=== PATIENT | female | born 1965 | race Caucasian/White ===

== ENCOUNTER → 2017-01-21 | Outpatient (CLI) | payer MEDICARE | END | disposition home or self-care (01) | LOC: GMAM 14:34 | PROVIDERS: ATTEND Family Medicine | DX: D64.9 Anemia, unspecified (principal); E03.9 Hypothyroidism, unspecified ==

== ENCOUNTER → 2017-01-22 | Outpatient (CLI) | payer MEDICARE | END | disposition home or self-care (01) | LOC: GMAM 12:28 | PROVIDERS: ATTEND Family Medicine | DX: R29.898 Other symptoms and signs involving the musculoskeletal system (principal) ==

== ENCOUNTER → 2017-02-05 | Outpatient (CLI) | payer MEDICARE ==
--- NOTE | 2017-02-06 13:20 | MAM ---
History: Well woman exam. Date of exam: 02/05/2017 Services provided: Bilateral full field digital screening mammography. CAD, the images were reviewed with R2 computer aided detection. FINDINGS: Glandular tissue is glandular tissue bilaterally is near completely fatty involuted. No prior study for comparison. Subpectoral implant is present on the left, mammographically benign. Benign-appearing calcifications are shown bilaterally with deformity of the left nipple appreciated. No dominant mass or architectural distortion. IMPRESSION: Benign exam. Recommendation: Routine annual mammography BIRAD CATEGORY: 2 BENIGN Electronically signed by: Jazmine Dominguez MD 02/06/2017 1:20 PM CDT
== END | disposition home or self-care (01) ==
LOC: MAMMO 10:27
PROVIDERS: ATTEND Family Medicine
DX: Z12.31 Encounter for screening mammogram for malignant neoplasm of breast (principal)

== ENCOUNTER → 2017-02-19 | Outpatient (CLI) | payer MEDICARE | END | disposition home or self-care (01) | LOC: GMAM 17:18 | PROVIDERS: ATTEND Family Medicine | DX: R10.9 Unspecified abdominal pain (principal) ==

== ENCOUNTER → 2017-02-20 | Outpatient (CLI) | payer MEDICARE ==
--- NOTE | 2017-02-20 14:11 | CT ---
Procedure: CT ABDOMEN PELVIS WITHOUT IV CONTRAST Exam Date: 02/20/2017 1:21 PM CDT Ordering Provider: CALE ZIMMERMAN Clinical Indication: ABD PAIN Comparison: None TECHNIQUE: CT of the abdomen and pelvis WITHOUT intravenous contrast. The abdomen and pelvis were scanned utilizing a multidetector helical scanner from the diaphragm to the lesser trochanter. Coronal and sagittal reformations were obtained. DISCUSSION: ABSENCE OF INTRAVENOUS CONTRAST DECREASES SENSITIVITY FOR DETECTION OF FOCAL LESIONS AND VASCULAR PATHOLOGY. LOWER THORAX: 2-3 mm calcified granuloma is seen in the left lower lobe. Partially imaged left breast implant. HEPATOBILIARY: No focal hepatic lesions. No biliary ductal dilatation. SPLEEN: No splenomegaly. PANCREAS: No focal masses or ductal dilatation. ADRENALS: No adrenal nodules. KIDNEYS/URETERS: No hydronephrosis, stones, or solid mass lesions. PELVIC ORGANS/BLADDER: Unremarkable. PERITONEUM / RETROPERITONEUM: No free air or fluid. LYMPH NODES: No lymphadenopathy. VESSELS: Unremarkable. GI TRACT: No distention or wall thickening. Extensive descending and sigmoid diverticulosis is present without evidence of diverticulitis. BONES AND SOFT TISSUES: No acute abnormality. IMPRESSION: 1. Extensive colonic diverticulosis. No definite evidence of diverticulitis. 2. Slightly fluid filled state of the colon. Correlate for diarrheal state. Electronically signed by: Rayray Clifford MD 02/20/2017 2:09 PM CDT
--- NOTE | 2017-02-20 15:09 | US ---
EXAM DESCRIPTION: Gallbladder ultrasound. CLINICAL HISTORY: ABD PAIN COMPARISON: None. TECHNIQUE: Routine sonographic images of the right upper quadrant of the abdomen were acquired and submitted for review. FINDINGS: Liver: The liver is enlarged up to 16.9 cm. It demonstrates increased echogenicity. Bile ducts- Intrahepatic and extrahepatic bile ducts not dilated with common bile duct measuring 3 mm. Gallbladder: Normal without sludge, calculi, or polyps. The gallbladder wall is normal. Pancreas: Visualized portions are unremarkable. Ascites: none IMPRESSION: 1. Normal sonographic appearance of the gallbladder. 2. Hepatomegaly with hepatic steatosis. Electronically signed by: Darren Nelson MD 02/20/2017 3:09 PM CDT
== END | disposition home or self-care (01) ==
LOC: CT 12:49
PROVIDERS: ATTEND Family Medicine
DX: R10.9 Unspecified abdominal pain (principal)

== ENCOUNTER → 2017-05-29 | Outpatient (CLI) | payer MEDICARE ==
--- NOTE | 2017-05-29 16:07 | US ---
EXAM DESCRIPTION: Thyroid CLINICAL HISTORY: 52 years Female, ABNORMAL THYROID FINDINGS COMPARISON: None. FINDINGS: Patient has a history of prior thyroidectomy on the right. The isthmus is 3 mm in thickness and the remaining left lobe measures 4.6 x 1.8 x 1.6 cm. In the upper pole is a hypoechoic 3 x 4 x 5 mm nonspecific nodule. Also in the upper pole is a small 1.5 x 3 x 3 mm hypoechoic nodule. Projecting from the lower pole of the left lobe laterally and inferiorly is a 7 x 8 x 13 mm hypoechoic nodule that is wider than tall and smoothly marginated and homogeneous. This could represent either a small lymph node or a small hypoechoic thyroid nodule or debris-filled cyst. One-year follow-up recommended for reevaluation of the left lobe of the thyroid. IMPRESSION: Surgical absence of the right lobe with normal sized left lobe and isthmus. Several tiny less than 5 mm nodules in the upper pole with a hypoechoic 13 x 7 x 8 mm nodule projecting from the lower pole are noted. This is smooth and oval without worrisome calcifications or lobulation. One-year follow-up for stability recommended. Electronically signed by: Nolberto Dumont MD 05/29/2017 4:05 PM CDT
== END | disposition home or self-care (01) ==
LOC: US 10:47
PROVIDERS: ATTEND Family Medicine
DX: E03.8 Other specified hypothyroidism (principal)

== ENCOUNTER 2017-06-11 05:45 | Day surgery (SDC) | payer MEDICARE ==
[2017-06-11] MEDS ORDERED: PROPOFOL 200 MG/20 ML VIAL IV ONE ×2 (09:00)
[2017-06-11] MEDS ORDERED: LACTATED RINGERS 1,000 ML IVS ONE (09:00)
--- NOTE | 2017-06-11 10:12 | OP ---
DATE OF PROCEDURE: 06/11/17 PREOPERATIVE DIAGNOSIS: 1. Generalized abdominal pain. 2. Change in bowel habits. POSTOPERATIVE DIAGNOSIS: 1. Mild ileitis. 2. Diverticulosis. PROCEDURE: 1. Colonoscopy plus biopsy. SURGEON: Horace Pina MD. COMPLICATIONS: None apparent. BLOOD LOSS: None. MEDICATIONS: Monitored anesthesia care. DESCRIPTION OF PROCEDURE: Informed consent was obtained prior to sedation. The preprocedure cardiopulmonary assessment was satisfactory. The patient was placed in the left lateral decubitus position and was sedated. A digital rectal exam was unremarkable. The tip of the Olympus colonoscope was inserted in the rectum and guided over to the cecum. The cecum was identified by locating the ileocecal valve and appendiceal orifice. The ileocecal valve was intubated and the distal terminal ileum was inspected. There were multiple punctate ulcerations and mild surround inflammation in the distal ileum. Biopsies were obtained. The mucosa of the cecum, ascending colon, hepatic flexure, transverse colon, splenic flexure, descending colon and sigmoid colon was closely examined. Direct and retroflexed views of the rectum were obtained. The patient had some diverticulosis. Otherwise, the colon mucosa was normal. I biopsied throughout the colon to rule out microscopic colitis. The procedure was then terminated. RECOMMENDATIONS: Followup pathology results. If there is no significant pathology found on these biopsies, we will proceed with evaluating either the gallbladder with HIDA scan or perhaps upper endoscopy to evaluate the upper GI tract for the rest of her GI symptoms. #[id number] cc: Nolberto Desai MD [facility]
[2017-06-11 11:31] VITALS: TEMP 972
[2017-06-11 11:36] VITALS: BP 170/93; O2SAT 100
== END 2017-06-11 10:50 | disposition home or self-care (01) ==
LOC: AMB 05:45
PROVIDERS: ATTEND Internal Medicine Gastroenterology
DX: R10.84 Generalized abdominal pain (principal); K52.9 Noninfective gastroenteritis and colitis, unspecified; K57.30 Diverticulosis of large intestine without perforation or abscess without bleeding; I10 Essential (primary) hypertension; M79.7 Fibromyalgia; F41.9 Anxiety disorder, unspecified; M19.90 Unspecified osteoarthritis, unspecified site; E78.00 Pure hypercholesterolemia, unspecified; D64.9 Anemia, unspecified; E66.9 Obesity, unspecified; K21.9 Gastro-esophageal reflux disease without esophagitis; J44.9 Chronic obstructive pulmonary disease, unspecified; E89.0 Postprocedural hypothyroidism; Z68.41 Body mass index [BMI] 40.0-44.9, adult; Z79.82 Long term (current) use of aspirin; Z79.899 Other long term (current) drug therapy

== ENCOUNTER 2017-08-06 06:02 | Day surgery (SDC) | payer MEDICARE ==
[2017-08-06] MEDS ORDERED: PROPOFOL 200 MG/20 ML VIAL IV ONE (07:00)
[2017-08-06] MEDS: LACTATED RINGERS 1,000 ML ONE (10:15)
--- NOTE | 2017-08-06 11:09 | OP ---
DATE OF PROCEDURE: 08/06/17 PREOPERATIVE DIAGNOSIS: 1. Epigastric pain. 2. Bloating. 3. Heartburn. 4. Nausea. POSTOPERATIVE DIAGNOSIS: 1. Mild esophagitis. 2. Gastritis. PROCEDURE: 1. Esophagogastroduodenoscopy plus biopsy. SURGEON: Horace Pina MD. COMPLICATIONS: None apparent. BLOOD LOSS: None. MEDICATIONS: Monitored anesthesia care. DESCRIPTION OF PROCEDURE: Informed consent was obtained prior to sedation. The preprocedure cardiopulmonary assessment was satisfactory. The patient was placed in the left lateral decubitus position and was sedated. The tip of the Olympus esophagogastroduodenoscope was inserted in the oropharynx and carefully advanced through the cricopharyngeus into the esophageal lumen. The distal esophagus was significant for some mild, grade A reflux esophagitis. Biopsies were obtained. Otherwise, the esophagus was unremarkable. The stomach was examined with direct and retroflexed views. The antrum, body, fundus, cardia and incisura were closely examined. There was some gastritis in the body and antrum. This was biopsied for both H. pylori and for histology. There were no ulcerations in the stomach. The duodenum was examined down to the third portion and it was overall unremarkable. The procedure was then terminated. ENDOSCOPIC FINDINGS: 1. Gastritis. 2. Esophagitis. RECOMMENDATIONS: 1. Followup the pathology. 2. Daily proton pump inhibitor. 3. If the biopsies do not show H. pylori and if the trial of proton pump inhibitor is not beneficial for her, then I think she will need a HIDA scan done to look for suggestion of gallbladder disease. [id number] cc: Nolberto Desai MD [facility]
[2017-08-06 11:41] VITALS: TEMP 97.8; O2SAT 100
[2017-08-06 11:43] VITALS: BP 120/70
== END 2017-08-06 11:25 | disposition home or self-care (01) ==
LOC: AMB 06:02
PROVIDERS: ATTEND Internal Medicine Gastroenterology
DX: K29.50 Unspecified chronic gastritis without bleeding (principal); K21.0 Gastro-esophageal reflux disease with esophagitis; R11.2 Nausea with vomiting, unspecified; M79.7 Fibromyalgia; M19.90 Unspecified osteoarthritis, unspecified site; F41.9 Anxiety disorder, unspecified; E78.00 Pure hypercholesterolemia, unspecified; I10 Essential (primary) hypertension; F17.210 Nicotine dependence, cigarettes, uncomplicated; E89.0 Postprocedural hypothyroidism; D64.9 Anemia, unspecified; E66.9 Obesity, unspecified; Z68.41 Body mass index [BMI] 40.0-44.9, adult; Z79.899 Other long term (current) drug therapy
CPT/HCPCS: 00740; 43239; 87077; 88305; 88342; J3490; J7120

== ENCOUNTER → 2017-08-12 | Outpatient (CLI) | payer MEDICARE | END | disposition home or self-care (01) | LOC: GMAM 10:51 | PROVIDERS: ATTEND Family Medicine | DX: E03.9 Hypothyroidism, unspecified (principal) ==

== ENCOUNTER → 2017-09-11 | Outpatient (CLI) | payer MEDICARE | END | disposition home or self-care (01) | LOC: GMAM 11:36 | PROVIDERS: ATTEND Family Medicine | DX: M79.7 Fibromyalgia (principal); R31.21 Asymptomatic microscopic hematuria ==

== ENCOUNTER → 2018-02-18 | Outpatient (CLI) | payer MEDICARE ==
--- NOTE | 2018-02-18 16:35 | MRI ---
EXAM DESCRIPTION: Brain w/wo Contrast: Magnetic Resonance Imaging. CLINICAL HISTORY: BLURRY VISION COMPARISON: None. TECHNIQUE: Multiplanar, high-field MRI, multiple conventional sequences, without and with gadolinium IV contrast. No adverse reactions. Multiple axial diffusion sequences. FINDINGS: Focal area of dark blooming signal in the GRE sequence at the thomas-white matter junction, lateral to the frontal horn of the right lateral ventricle and superior to the sylvian fissure. Small circular densities are noted on T2-weighted signal with minimal contrast enhancement and dark signal on the SB diffusion sequences. Minimally bright on FLAIR sequence and decreased T1 signal. No significant mass effect. Otherwise normal FLAIR and T2-weighted signal in the periventricular white matter and thomas-white matter junctions of the cerebral hemispheres. . Normal signal in the bilateral basal ganglia. No hemorrhage, no cerebral edema, no mass-effect. Normal contrast enhancement. Normal signal in the brainstem and cerebellar hemispheres. No hemorrhage, no cerebral edema, no mass-effect. Normal contrast enhancement. Concordance of the diffusion and non-diffusion sequences with no evidence of acute or subacute infarction. Cortical sulci, ventricles, and other CSF spaces, and the subdural spaces are normally configured. No effacement or displacement. No midline shift. No extra-axial hemorrhage. Normal contrast enhancement. Normal flow signal void in the major vessels of the [place], and the venous sinuses. IACs are symmetric bilaterally. Fluid signal in the left mastoid air cells. No mass effect in the bilateral Cerebellopontine angles. Normal contrast enhancement. Pituitary gland occupies only the base of the sella. Normal contrast enhancement. Base of the cerebellar tonsils is at the level of the foramen magnum. Minimal mucosal thickening in the ethmoid air cells with normal signal in the remainder of the paranasal sinuses. The bony calvarium is intact. IMPRESSION: 1. Small multicentric lesion in the right thomas-white matter junction superior to the right temporal lobe lateral to the frontal horn of the right lateral ventricle with minimal contrast enhancement and blooming on gradient echo sequence. 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 Minimal mass effect and no cerebral edema. No diffusion restriction. 2. The remainder of the study is relatively unremarkable. Paranasal sinusitis and left mastoid sinusitis. Empty sella. No abnormal contrast enhancement or mass effect in the orbits. No abnormal contrast enhancement mass effect in the optic tracts or optic chiasm.. Electronically signed by: Bryan Grayson MD 02/18/2018 4:34 PM CDT
== END ==
LOC: MRI 09:56
PROVIDERS: ATTEND Family Medicine
DX: H53.9 Unspecified visual disturbance (principal); J32.9 Chronic sinusitis, unspecified; E23.6 Other disorders of pituitary gland

== ENCOUNTER → 2018-03-20 | Outpatient (CLI) | payer MEDICARE ==
--- NOTE | 2018-03-20 09:03 | RAD ---
EXAM DESCRIPTION: Foot,Left 3 Views CLINICAL HISTORY: 53 years, Female, PAIN IN LEFT FOOT COMPARISON: None TECHNIQUE: AP, lateral, and oblique views of the left foot FINDINGS: Bones appear mildly osteopenic with prominent irregular pattern. Degenerative narrowing of the first metatarsal phalangeal joint. Lateral view shows intact talus and calcaneus with prominent dorsal and plantar calcaneal enthesophytes. Degenerative changes are seen at the bases of first and second metatarsals. There is no other bone, joint, or soft tissue abnormality observed. Subtle density in the soft tissues of the dorsal foot is seen, exact nature is uncertain. This could be dystrophic calcification or phlebolith. Foreign body is thought less likely. IMPRESSION: Degenerative changes as described. Electronically signed by: Bunny Valenzuela MD 03/20/2018 9:02 AM CDT
== END ==
LOC: RAD 08:38
PROVIDERS: ATTEND Orthopaedic Surgery
DX: M79.672 Pain in left foot (principal)

== ENCOUNTER → 2018-09-09 | Outpatient (CLI) | payer MEDICARE ==
--- NOTE | 2018-09-09 16:29 | CT ---
Procedure: CT LUNG SCREENING Exam Date: 09/09/2018. Ordering Provider: Juan Ramesh Clinical Indication: TOBACCO USE. 40 pack year smoking history. This patient meets eligibility criteria for low-dose CT lung cancer screening. Comparison: Abdominal CT scan 02/20/2017. Technique: Using a multislice scanner, sequential helical axial imaging was obtained in the thorax, 2.5 mm thickness, 2.5 mm separation, from the level of the thoracic inlet through the lung bases without IV contrast. A low dose protocol was utilized: CTDI: 2.93 mGy. 120. kVp. 75 mA. 2D sagittal and coronal reconstructed images, 6.0 mm thickness, were obtained. This exam was performed according to our departmental dose optimization program which includes use of automated exposure control, adjustment of the mA and/or kV according to patient size and/or use of iterative reconstruction technique. Nodule measurements under 10 mm are given as mean value of 3 axes diameters. FINDINGS: Lungs and large airways: Bilateral small scattered blebs in a centrilobular pattern more prevalent in the upper lung grande and less prevalent in the lower lung grande. No abnormal nodules. No masses or infiltrates bilaterally. 3 mm calcified nodule abutting the left, posterior, diaphragmatic pleura in the medial posterior recess of the left lower lobe. Airways are unremarkable. Pleura: Occasional foci of thickening. No effusion bilaterally or pneumothorax. Mediastinum and hodan: evaluation limited by low dose technique and lack of IV contrast. Negative. Heart and great vessels: Calcifications in the right coronary artery and proximal LAD and left circumflex. Chest wall, lower neck, axillae: Evaluation also limited by same factors as described above. Retromuscular left breast saline implant. Calcifications anterior to the implant. Axillary lymph nodes. Right breast calcifications. Upper abdomen: No free fluid or free air in the included peritoneal cavity. Normal size and density of the included spleen and adrenal glands. Gallbladder partially visualized. Osseous structures: Evaluation limited by low dose MIP technique. Scattered spondylosis in the spine. Bilateral sternoclavicular arthrosis. No blastic or lytic lesions. IMPRESSION: Mild emphysematous changes with a centrilobular pattern. No abnormal nodules. No masses or infiltrates. 3 mm granuloma abutting the pleura in the left lung base.. One year screening CT follow-up recommended according to [employer] Best Practice recommendations utilizing the lung RADS classification system. Please see below for Lung RADS category and FOLLOW-UP.* *Lung RADS category Category 1 - No nodule or definitely benign nodules (probability of malignancy less than 1%). Follow-up: Continue annual screening with Low Dose Chest CT in 12 months. Electronically signed by: Bryan Grayson MD 09/09/2018 4:28 PM [facility]
== END ==
LOC: CT 10:00
PROVIDERS: ATTEND Family Medicine
DX: Z87.891 Personal history of nicotine dependence (principal)

== ENCOUNTER → 2018-09-16 | Outpatient (CLI) | payer MEDICARE ==
--- NOTE | 2018-09-17 12:27 | MAM ---
EXAM DESCRIPTION: 3D Screening BILATERAL : Digital Mammography. CLINICAL HISTORY: 53 years Female SCREEN . No complaints. No personal or family history of breast cancer. Childbirth. Postmenopausal. No HRT. Bilateral breast augmentation with later removal of augmentation implant on the right. Lifetime risk of developing breast cancer (Tyrer-Cuzick model)(%): 6.6. COMPARISON: Bilateral screening 2-D mammographic examination 02/05/2017. TECHNIQUE: Bilateral CC and MLO projection full-field images, with Lolita Implant Displacement left digital tomosynthesis mammographic technique. Left 2-D digital full-field images, MLO and CC projections, non-displaced. CAD Bilateral digital 2-D full-field MLO images. CAD not available for tomosynthesis or 2-D images. FINDINGS: The breast parenchymal density pattern is: Scattered areas of fibroglandular density. No skin thickening or nipple retraction on the right. Large coarse calcifications bilaterally probably associated with prior procedure scarring and fat necrosis. Larger skin indentation and nipple retraction on the left is stable. Retro-muscular saline implant left breast stable, and capsule intact where seen. Also scattered microcalcifications bilaterally. No new focal, stellate mass or density, focal asymmetry , and no suspicious microcalcifications bilaterally. Stable mammograms compared to prior study. Taking into account, differences in mammographic technique. IMPRESSION: Benign exam. BIRAD CATEGORY: 2 BENIGN FINDINGS. RECOMMENDATIONS: FOLLOW UP: Routine digital bilateral mammographic screening, one year interval from August 2018. Written communication explaining the IMPRESSION and follow-up, will be mailed to the patient and referring health care provider. According to the [employer], yearly mammograms are recommended starting at age 40 and continuing as long as a woman is in good health. Any breast change noted on a breast self-exam should be reported promptly to the patient's healthcare provider. Breast MRI is recommended for women with an approximately 20-25% or greater lifetime risk of breast cancer, including women with a strong family history of breast or ovarian cancer and women who have been treated for Hodgkin's disease. A negative mammographic report should not delay tissue diagnosis in patients with significant clinical history or physical findings. Extremely dense breast tissue limits the sensitivity of digital mammography. Electronically signed by: Bryan Grayson MD 09/17/2018 12:26 PM [facility]IENT [facility]IAISON
== END ==
LOC: MAMMO 15:39
PROVIDERS: ATTEND Family Medicine
DX: Z12.31 Encounter for screening mammogram for malignant neoplasm of breast (principal)

== ENCOUNTER → 2018-12-17 | Outpatient (CLI) | payer MEDICARE | LOC: GMAM 13:31 | PROVIDERS: ATTEND Family Medicine | DX: E03.9 Hypothyroidism, unspecified (principal); E53.8 Deficiency of other specified B group vitamins; E55.9 Vitamin D deficiency, unspecified ==

== ENCOUNTER 2019-05-13 04:52 | Day surgery (SDC) | payer MEDICARE ==
[2019-05-13] MEDS ORDERED: SODIUM CHL 0.9% 100ML MINI-BAG 100 ML IVPB ONE (07:16)
[2019-05-13] MEDS ORDERED: raNITIdine HCL INJ 25 MG/ML VIAL IV ONE (10:00)
[2019-05-13] MEDS ORDERED: LIDOCAINE 1% 10 ML VIAL INJ ONE (10:00)
[2019-05-13] MEDS ORDERED: GLYCOPYRROLATE 0.2 MG/ML VIAL IV ONE (10:00)
[2019-05-13] MEDS ORDERED: DEXAMETHASONE INJ 10 MG/ML VIAL IV ONE (10:00)
[2019-05-13] MEDS ORDERED: PROPOFOL 200 MG/20 ML VIAL IV ONE (10:00)
[2019-05-13] MEDS: LACTATED RINGERS 1,000 ML ONE (10:05)
[2019-05-13] MEDS ORDERED: fentaNYL CITRATE INJ 50 MCG/ML AMP ONE (10:29)
[2019-05-13] MEDS ORDERED: KETAMINE HCL 50 MG/ML SYG IV ONE (10:29)
[2019-05-13] MEDS ORDERED: MIDAZOLAM INJ 5 MG/5 ML VIAL ONE (10:29)
[2019-05-13] MEDS: ceFAZolin SODIUM 1 GM VIAL ONE (10:47)
[2019-05-13] MEDS: BUPIVACAINE 0.5% W/EPI 30 ML VIAL INJ ONE (11:07)
--- NOTE | 2019-05-13 11:40 | OP ---
DATE OF PROCEDURE: 05/13/19 PREOPERATIVE DIAGNOSIS: 1. History of left breast implant post breast reduction due to large inflammatory mass, currently with breast pain, aches, systemic inflammatory response in addition that may be unrelated. POSTOPERATIVE DIAGNOSIS: 1. History of left breast implant post breast reduction due to large inflammatory mass, currently with breast pain, aches, systemic inflammatory response in addition that may be unrelated. PROCEDURE: 1. Excision and removal of left breast implant. SURGEON: [place] MD ANESTHESIA: General and local. FINDINGS: The implant was encapsulated with a very thin capsule over the muscle and the ribs. It was a submuscular implant. There was inflammatory stranding and scarring of some of the implant to the capsule, but it was nonruptured. It was a silicone implant. COMPLICATIONS: None. ESTIMATED BLOOD LOSS: Minimal. DRAINS: A 15 Gregory drain was. PLAN: Discharge. INDICATION: As stated. DESCRIPTION OF PROCEDURE: General anesthesia was induced. She was prepped and draped in sterile fashion. Local anesthesia was placed. Incision was made in the inframammary line from her upside down T incision from her reduction. Subcutaneous tissues were taken down. We then entered the capsule in the thinned inferior pectoralis muscle and identified the implant. It was fixed in multiple areas. We used gentle finger sweep to free this up and then removed the implant without difficulty or rupture. There was no significant bleeding in the capsule, but a 15 Gregory drain was placed through a small stab incision and secured to the skin edge. The defect through the capsule was repaired with a running 3-0 Vicryl and the wound closed in 2 additional layers. Dressings were applied. She was awakened and taken to Recovery to be discharged. #[id number] [facility]
[2019-05-13 13:10] VITALS: BP 141/92; TEMP 97.5; O2SAT 99
== END 2019-05-13 12:30 | disposition home or self-care (01) ==
LOC: AMB 04:52
PROVIDERS: ATTEND Surgery
DX: T85.848A Pain due to other internal prosthetic devices, implants and grafts, initial encounter (principal); N64.4 Mastodynia; I10 Essential (primary) hypertension; F32.9 Major depressive disorder, single episode, unspecified; E03.9 Hypothyroidism, unspecified; F41.9 Anxiety disorder, unspecified; J44.9 Chronic obstructive pulmonary disease, unspecified; K21.9 Gastro-esophageal reflux disease without esophagitis; Z88.5 Allergy status to narcotic agent; Z79.82 Long term (current) use of aspirin; Z79.899 Other long term (current) drug therapy
CPT/HCPCS: 00402; 19371; J0690; J1100; J2250; J2780; J3010; J3490; J7050; J7120

== ENCOUNTER → 2019-10-08 | Outpatient (CLI) | payer MEDICARE ==
--- NOTE | 2019-10-09 16:34 | US ---
EXAM DESCRIPTION: Soft Tissue,Head/Neck: ULTRASOUND. CLINICAL HISTORY: 54 years Female localized swelling, mass and lump, neck COMPARISON: None Available. TECHNIQUE: Transcutaneous scanning: Campa-scale and Doppler modes. FINDINGS: Scanning in the area of palpable mass posterior left neck. Normal echogenicity of the subcutaneous tissues and the superficial muscle layer. No dominant solid mass or distinct cyst. No large calcifications. No overlying skin changes. IMPRESSION: No ultrasound abnormality in the region of palpable mass posterior left neck. Electronically signed by: Bryan Grayson MD 10/09/2019 4:33 PM [employer]
== END ==
LOC: US 10:00
PROVIDERS: ATTEND Family Medicine
DX: R22.1 Localized swelling, mass and lump, neck (principal)

== ENCOUNTER → 2020-01-12 | Outpatient (CLI) | payer MEDICARE | LOC: GMAM 11:31 | PROVIDERS: ATTEND Family Medicine | DX: E53.8 Deficiency of other specified B group vitamins (principal); E03.9 Hypothyroidism, unspecified; E55.9 Vitamin D deficiency, unspecified; I10 Essential (primary) hypertension; Z79.899 Other long term (current) drug therapy ==